=== PATIENT | female | born 1990 | race Caucasian/White ===

== ENCOUNTER 2018-07-07 13:26 | Emergency (ER) | payer OTHER ==
[~2018-07-07] VITALS: Ht 167.6 cm; Wt 81.7 kg
[2018-07-07] MEDS ORDERED: LEVOTHYROXINE50 MCG PO (14:05)
[2018-07-07] MEDS ORDERED: GLUCOPHAGE500 MG PO (14:05)
[2018-07-07] MEDS ORDERED: GLIPIZIDE5 MG PO (14:12)
[2018-07-07] MEDS ORDERED: LEXAPRO10 MG PO (14:12)
[2018-07-07] MEDS ORDERED: PRENATAL 19 TA1 EAC1 PO (14:13)
== END 2018-07-07 17:20 | disposition home or self-care (01) ==
LOC: ED 13:26
DX: O20.0 Threatened abortion (principal); Z3A.01 Less than 8 weeks gestation of pregnancy
CPT/HCPCS: 36415; 76801; 76817; 84702; 99284-25

== ENCOUNTER 2018-09-14 14:39 | Emergency (ER) | payer OTHER ==
[~2018-09-14] VITALS: Ht 167.6 cm; Wt 80.7 kg
[~2018-09-14 14:39] MED LIST: GLIPIZIDE5 MG PO; GLUCOPHAGE500 MG PO; LEVOTHYROXINE50 MCG PO; LEXAPRO10 MG PO; PRENATAL 19 TA1 EAC1 PO
[2018-09-14] MEDS ORDERED: HUMALOG100 UNITS/ IV (14:56)
[2018-09-14] MEDS ORDERED: ONDANSETRON ODT8 MG PO (16:45)
[2018-09-14] MEDS ORDERED: KEFLEX500 MG PO (16:45)
== END 2018-09-14 17:08 | disposition home or self-care (01) ==
LOC: ED 14:39
DX: N39.0 Urinary tract infection, site not specified (principal); E11.9 Type 2 diabetes mellitus without complications; E03.9 Hypothyroidism, unspecified; F41.9 Anxiety disorder, unspecified; F32.9 Major depressive disorder, single episode, unspecified; Z79.4 Long term (current) use of insulin
CPT/HCPCS: 81001; 84703; 87077; 87088; 87186; 99284

== ENCOUNTER 2018-12-07 17:49 | Emergency (ER) | payer OTHER ==
[~2018-12-07] VITALS: Ht 167.6 cm; Wt 80.7 kg
[~2018-12-07 17:49] MED LIST changes: +HUMALOG100 UNITS/ SUB-Q; +KEFLEX500 MG PO; +ONDANSETRON ODT8 MG PO
[2018-12-07] MEDS ORDERED: ONDANSETRON ODT8 MG PO (20:09)
[2018-12-07] MEDS ORDERED: KEFLEX500 MG PO (20:09)
== END 2018-12-07 21:10 | disposition home or self-care (01) ==
LOC: ED 17:49
DX: N12 Tubulo-interstitial nephritis, not specified as acute or chronic (principal); E11.9 Type 2 diabetes mellitus without complications; E03.9 Hypothyroidism, unspecified; F41.9 Anxiety disorder, unspecified; F32.9 Major depressive disorder, single episode, unspecified; Z79.4 Long term (current) use of insulin; Z79.899 Other long term (current) drug therapy
CPT/HCPCS: 80053; 85025; 96361; 96365; 96375; 99284-25; J0696; J2405; J7030

== ENCOUNTER 2018-12-10 11:12 | Emergency (ER) | payer OTHER ==
[~2018-12-10] VITALS: Ht 167.6 cm; Wt 80.7 kg
--- OUTSIDE RECORDS SUMMARY | 2018-12-10 11:14 | XMS ---
PreManage Notification: KEON BILLS Security Administrative Personal Assistant Events No recent Security Events currently on file CRITERIA MET - [facility] - 2 Visits in 30 Days CARE PROVIDERS ANA URBINA Primary Care Current PHONE: Unknown BOBBY CHAPIN Primary Care Current PHONE: [phone] Esther Benitez Primary Care [facility] PHONE: Unknown Eugenia has no Care Guidelines for this patient. E.D. VISIT COUNT (12 MO.) [address] [place] [id number] W[facility] TOTAL 5 NOTE: Visits indicate total known visits. ED/UCC VISIT TRACKING (12 MO.) 12/10/2018 11:13 [facility] [place] TYPE: Emergency COMPLAINT: - FLANK PAIN, HEADACHE 12/07/2018 17:50 [facility] [place] TYPE: Emergency COMPLAINT: - FLANK PAIN 10/20/2018 21:03 [facility] [place] TYPE: Emergency DIAGNOSES: - RT INSECT BITE/SWOLLEN/ 9 WEEKS - Toxic effect of venom of bees, accidental (unintentional), initial encounter - Toxic effect of venom of wasps, accidental (unintentional), initial encounter 09/14/2018 14:40 [facility] [place] TYPE: Emergency COMPLAINT: - URINE PROBLEM, BACK PAIN NON INJURY DIAGNOSES: - Hypothyroidism, unspecified - Unspecified abdominal pain - Urinary tract infection, site not specified - Major depressive disorder, single episode, unspecified - Anxiety disorder, unspecified - Type 2 diabetes mellitus without complications - medical terminologist (current) use of insulin 07/07/2018 13:28 [facility] [place] TYPE: Emergency COMPLAINT: - 5 WEEKS GESTATINAL BLEEDING DIAGNOSES: - Hemorrhage in early , unspecified - Less than 8 weeks gestation of - Threatened INPATIENT VISIT TRACKING (12 MO.) No inpatient visits to display in this time frame [email or web address]
[2018-12-10] MEDS ORDERED: PHENAZOPYRIDIN100 MG PO (11:38)
[2018-12-10] MEDS ORDERED: CEFUROXIME250 MG PO (13:28)
== END 2018-12-10 13:50 | disposition home or self-care (01) ==
LOC: ED 11:12
DX: N12 Tubulo-interstitial nephritis, not specified as acute or chronic (principal); E11.9 Type 2 diabetes mellitus without complications; F41.9 Anxiety disorder, unspecified; F32.9 Major depressive disorder, single episode, unspecified; E03.9 Hypothyroidism, unspecified; Z79.4 Long term (current) use of insulin; Z79.899 Other long term (current) drug therapy
CPT/HCPCS: 80053; 83605; 83690; 84703; 85025; 96365; 96375; 99284-25; J0696; J1885; J2405; J2550; J7030